=== PATIENT | female | born 2000 | race Caucasian/White ===

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

== ENCOUNTER → 2022-12-31 | Outpatient (CLI) | payer BC ==
[~2022-12-31] VITALS: Ht 170 cm; Wt 82.3 kg
[~2022-12-31] MED LIST changes: +IRON DEXTRAN 1,000 MG/NS 250 ML IVPB IV ONE; +IRON DEXTRAN 25 MG/NS 6.25 ML TOTAL VOLUME IV ONE; -MMT17NA NS; +MOME17SP4 NS; -OXYC-197 PO; +OXYC1TAB87 PO
[2022-12-31 10:25] VITALS: BP 112/76
== END ==
LOC: SDC 10:06
PROVIDERS: ATTEND Internal Medicine
DX: E61.1 Iron deficiency (principal)
CPT/HCPCS: 96365